=== PATIENT | male | born 2000 | race Caucasian/White ===

== ENCOUNTER 2021-01-25 16:22 | Emergency (ER) | payer OTHER ==
[~2021-01-25] VITALS: Ht 175.3 cm; Wt 96.0 kg
[2021-01-25 19:57] LABS: BASO # 0.1 10^3/uL (0.0-0.2); BASO % 0.8 % (0.0-1.0); EOS # 0.1 10^3/uL (0.0-0.5); EOS % 1.8 % (0.0-3.0); HEMATOCRIT 44.5 % (42.0-52.0); HEMOGLOBIN 15.4 g/dl (13.5-17.5); LYMPH % 39.7 % (24.0-44.0); MEAN CORPUSCULAR HEMOGLOBIN 31.6 pg (27.0-33.0); MEAN CORPUSCULAR HGB CONC 34.6 g/dl (32.0-36.5); MEAN CORPUSCULAR VOLUME 91.2 fl (80.0-96.0); MONO # 0.8 10^3/uL (0.0-0.8); MONO % 10.9 % (2.0-8.0); NEUTROPHILS # 3.5 10^3/uL (1.5-8.5); NEUTROPHILS % 46.7 % (36.0-66.0); PLATELET COUNT, AUTOMATED 176 10^3/uL (150-450); RED BLOOD COUNT 4.88 10^6/uL (4.30-6.10); WHITE BLOOD COUNT 7.6 10^3/uL (4.0-10.0)
[2021-01-25] MEDS ORDERED: PROHANCE 279.3MG/ML 15ML VIAL As Ordered ONE (20:17)
[2021-01-25] MEDS ORDERED: PROHANCE 279.3MG/ML 5ML VIAL As Ordered ONE (20:17)
--- NOTE | 2021-01-25 21:10 | REPVR ---
PROCEDURE INFORMATION: Exam: MR Lumbar Spine Without and With Contrast Exam date and time: 01/25/2021 8:39 PM Age: 20 years old Clinical indication: Lumbago and numbness; Low back pain; Patient HX: Recent spontaneous loss of bowel, back pain/ previous fall 06/2020, numbness in medial groin region; Additional info: Spontaneous loss of bowel and back pain/ previous injury TECHNIQUE: Imaging protocol: Multiplanar magnetic resonance images of the lumbar spine without and with intravenous contrast. Contrast material: PROHANCE; Contrast volume: 16 ml; Contrast route: INTRAVENOUS (IV); COMPARISON: No relevant prior studies available. FINDINGS: Vertebrae and Spinal cord: The lower thoracic cord has a normal appearance and the conus terminates at the level of the midbody of L1. Vertebral body morphology and signal is normal. No fracture or subluxation. Degenerative disc disease and facet arthrosis at L4-L5 and L5-S1. No abnormal enhancement. L1-L2: No significant disc disease. No significant spinal canal stenosis. No neural foraminal stenosis. L2-L3: No significant disc disease. No significant spinal canal stenosis. No neural foraminal stenosis. L3-L4: No significant disc disease. No significant spinal canal stenosis. No neural foraminal stenosis. L4-L5: Mild disc space height loss and decreased disc signal. Posterior broad-based disc protrusion and posterior central focal disc bulge which abuts the left L5 nerve root (axial image 7, series 601). Mild bilateral facet hypertrophy. Mild spinal stenosis. L5-S1: Decreased disc signal. Posterior broad-based disc protrusion and posterior central focal disc bulge. mild bilateral facet hypertrophy, worse on the left. No nerve root impingement or spinal stenosis. Soft tissues: Unremarkable. IMPRESSION: 1. Degenerative spondylosis of the lower lumbar spine. 2. L4-L5 posterior broad-based disc protrusion and posterior central focal disc bulge which abuts the left L5 nerve root. Correlate with left L5 radiculopathy. 3. L5-S1 posterior broad-based disc protrusion and posterior central focal disc bulge without nerve root impingement. Electronically signed by: Rolando Plummer On 01/25/2021 21:10:05 PM
[2021-01-25] MEDS ORDERED: KETO10TAB PO (21:40)
[2021-01-25] MEDS ORDERED: METH-1165 PO (21:41)
[2021-01-25] MEDS ORDERED: KETOROLAC TROMETHAMINE 10 MG TAB PO ONE (21:45)
[2021-01-25 21:51] VITALS: BP 137/91
== END 2021-01-25 22:12 | disposition home or self-care (01) ==
LOC: M ED 16:22
DX: M51.26 Other intervertebral disc displacement, lumbar region (principal); M47.26 Other spondylosis with radiculopathy, lumbar region; M43.16 Spondylolisthesis, lumbar region; R15.9 Full incontinence of feces
CPT/HCPCS: 36415; 72158; 80047; 85025; 99284; A9576

== ENCOUNTER 2021-02-27 10:33 | Emergency (ER) | payer OTHER ==
[~2021-02-27] VITALS: Ht 175.3 cm; Wt 88.6 kg
[~2021-02-27 10:33] MED LIST: KETO10TAB PO; METH-1165 PO
[2021-02-27 13:00] LABS: APPEARANCE, URINE CLEAR (CLEAR); BACTERIA, URINE AUTO NEGATIVE (NEGATIVE); BILIRUBIN, URINE AUTO NEGATIVE (NEGATIVE); BLOOD, URINE BLOOD NEGATIVE (NEGATIVE); COLOR, URINE STRAW (YELLOW); GLUCOSE, URINE (UA) AUTO NEGATIVE (NEGATIVE); KETONE, URINE AUTO NEGATIVE (NEGATIVE); LEUKOCYTE ESTERASE, URINE AUTO NEGATIVE (NEGATIVE); NITRITE, URINE AUTO NEGATIVE (NEGATIVE); PROTEIN, URINE AUTO NEGATIVE (NEGATIVE); RBC, URINE AUTO 0 /HPF (0-3); SQUAMOUS EPITHELIAL CELL UR AU 0 /HPF (0-6); UROBILINOGEN, URINE AUTO 0.2 mg/dL (0.0-2.0); WBC, URINE AUTO 0 /HPF (0-3)
[2021-02-27 13:02] LABS: BASO # 0.1 10^3/uL (0.0-0.2); BASO % 0.5 % (0.0-1.0); EOS # 0.1 10^3/uL (0.0-0.5); EOS % 0.5 % (0.0-3.0); HEMATOCRIT 45.2 % (42.0-52.0); HEMOGLOBIN 16.2 g/dl (13.5-17.5); LYMPH # 2.5 10^3/uL (1.5-5.0); LYMPH % 27.1 % (24.0-44.0); MEAN CORPUSCULAR HEMOGLOBIN 32.5 pg (27.0-33.0); MEAN CORPUSCULAR HGB CONC 35.8 g/dl (32.0-36.5); MEAN CORPUSCULAR VOLUME 90.6 fl (80.0-96.0); MONO # 0.6 10^3/uL (0.0-0.8); MONO % 6.8 % (2.0-8.0); NEUTROPHILS % 64.7 % (36.0-66.0); PLATELET COUNT, AUTOMATED 179 10^3/uL (150-450); RED BLOOD COUNT 4.99 10^6/uL (4.30-6.10); WHITE BLOOD COUNT 9.4 10^3/uL (4.0-10.0)
[2021-02-27 13:29] LABS: BLOOD UREA NITROGEN 15 MG/DL (7-18); CALCIUM LEVEL 9.9 MG/DL (8.5-10.1); CARBON DIOXIDE LEVEL 29 MEQ/L (21-32); CHLORIDE LEVEL 103 MEQ/L (98-107); CREATININE FOR GFR 0.97 MG/DL (0.70-1.30); GLOMERULAR FILTRATION RATE > 60.0 (>60); GLUCOSE, FASTING 92 MG/DL (70-100); POTASSIUM SERUM 4.2 MEQ/L (3.5-5.1); SODIUM LEVEL 138 MEQ/L (136-145)
[2021-02-27] MEDS ORDERED: KETOROLAC 30 MG/ML 1ML VIAL IV ONE (13:30)
[2021-02-27 13:40] LABS: ERYTHROCYTE SEDIMENTATION RATE 9 mm/hr (0-15); VITAMIN B12 LEVEL 371 PG/ML (247-911)
[2021-02-27] MEDS ORDERED: NORCO, ANEXSIA 5/325MG TABLET (HYDROcodone/ACETAMINOPHEN) PO ONE (17:05)
[2021-02-27] MEDS ORDERED: PROHANCE 279.3MG/ML 15ML VIAL As Ordered ONE (20:30)
[2021-02-27] MEDS ORDERED: PROHANCE 279.3MG/ML 5ML VIAL As Ordered ONE (20:30)
[2021-02-27] MEDS ORDERED: diazePAM 10 MG TAB PO ONE (21:35)
[2021-02-27] MEDS ORDERED: LIDOCAINE 5% (LIDODERM) PATCH TD ONE (21:35)
--- NOTE | 2021-02-27 21:46 | REPVR ---
PROCEDURE INFORMATION: Exam: MR Cervical Spine Without and With Contrast Exam date and time: 02/27/2021 8:22 PM Age: 20 years old Clinical indication: Disturbance of skin sensation; Paresthesia of skin; Additional info: Without followed by with contrast: Parasthesias R/O ms TECHNIQUE: Imaging protocol: Multiplanar magnetic resonance images of the cervical spine without and with contrast. Contrast material: PROHANCE; Contrast volume: 19 ml; Contrast route: INTRAVENOUS (IV); COMPARISON: No relevant prior studies available. FINDINGS: Vertebrae: There is no fracture. Vertebral alignment is normal. Stir images demonstrate no evidence of bone marrow edema or marrow infiltrating lesion. There is no marrow enhancement. Spinal cord: The cervical spinal cord and cervicomedullary junction are normal. No abnormal signal or enhancement of the cord. No cord compression. C2-C3: No significant disc disease. No significant spinal stenosis. C3-C4: No significant disc disease. No significant spinal stenosis. C4-C5: No significant disc disease. No significant spinal stenosis. C5-C6: Mild disc bulge. No central or foraminal stenosis. C6-C7: 2 mm right paracentral disc protrusion minimally indenting the thecal sac. No central or foraminal stenosis. C7-T1: No significant disc disease. No significant spinal stenosis. Soft tissues: No paraspinous or intraspinal mass, hemorrhage or fluid collection. Vertebral arteries: Expected flow voids in the vertebral arteries. IMPRESSION: 1. No evidence of demyelinating disease in the cervical spinal cord. 2. Mild disc disease at C5-C6 and C6-C7 Electronically signed by: Deandre Camargo On 02/27/2021 21:45:34 PM
--- NOTE | 2021-02-27 22:06 | REPVR ---
PROCEDURE INFORMATION: Exam: MR Head Without and With Contrast Exam date and time: 02/27/2021 8:22 PM Age: 20 years old Clinical indication: Numbness / parasthesia; Bilateral; Additional info: Parasthesias R/O ms TECHNIQUE: Imaging protocol: MR of the head without and with intravenous contrast. Contrast material: PROHANCE; Contrast volume: 19 ml; Contrast route: INTRAVENOUS (IV); COMPARISON: No relevant prior studies available. FINDINGS: Brain: There is an irregular focus of hyperintense signal in the left middle cerebellar peduncle as seen on series 501 image 8. Maximal dimension is approximately 10 mm . No additional abnormal signal foci are identified. There is no restricted diffusion. there is no hemorrhage or extra-axial collection. There is no abnormal enhancement. There are no abnormal flow voids. Cerebral ventricles: There is no hydrocephalus. Bones/joints: Unremarkable. Paranasal sinuses: Normal as visualized. No acute sinusitis. Mastoid air cells: Normal as visualized. No mastoid effusion. Orbital cavity: Unremarkable. Soft tissues: Unremarkable. IMPRESSION: There is a hyperintense signal focus in the left middle cerebellar peduncle without evidence of restricted diffusion or enhancement. This could represent a demyelinating plaque of multiple sclerosis. Other demyelinating processes are also possible. Electronically signed by: Deandre Camargo On 02/27/2021 22:05:50 PM
[2021-02-27 22:53] VITALS: BP 131/88
--- NOTE | 2021-02-28 15:00 | ED PDOC ---
Post-Departure Follow-Up ft terry and dr espinoza faxed formal report of mri brain and c spine for fu Colt Ley MD Feb 28, 2021 15:00
[2021-02-28] MEDS ORDERED: **NOTE PATIENT COMMENT** MISC XX SCH (21:00)
== END 2021-02-27 23:02 | disposition home or self-care (01) ==
LOC: M ED 10:33
DX: R93.0 Abnormal findings on diagnostic imaging of skull and head, not elsewhere classified (principal); M54.5 Low back pain; M54.6 Pain in thoracic spine; R32 Unspecified urinary incontinence; Z79.899 Other long term (current) drug therapy
CPT/HCPCS: 70553; 72156; 80048; 81001; 82607; 85025; 85652; 99284; A9576; J1885

== ENCOUNTER 2021-03-14 11:43 | Observation (INO) | payer OTHER ==
[~2021-03-14] VITALS: Ht 175.3 cm; Wt 94.4 kg
[2021-03-14] MEDS ORDERED: METH-1164 PO (11:52)
--- NOTE | 2021-03-14 12:37 | REPVR ---
PROCEDURE INFORMATION: Exam: CT Head Without Contrast Exam date and time: 03/14/2021 12:23 PM Age: 20 years old Clinical indication: Other: Intermittent black vision, L arm tingling, possible ms mri TECHNIQUE: Imaging protocol: Computed tomography of the head without contrast. Radiation optimization: All CT scans at this facility use at least one of these dose optimization techniques: automated exposure control; mA and/or kV adjustment per patient size (includes targeted exams where dose is matched to clinical indication); or iterative reconstruction. COMPARISON: MRI-Brain W/O FOLL BY WITH 02/27/2021 7:42 PM FINDINGS: Brain: There is no acute intracranial hemorrhage. No extra-axial fluid collection. The T2 hyperintense lesion in left middle cerebral peduncle seen on MRI is not able to be appreciated on CT. No evidence of acute infarct. Brown white differentiation is intact. There is no evidence of mass. There is no mass effect or midline shift. Cerebral ventricles: No ventriculomegaly. Paranasal sinuses: Visualized sinuses are unremarkable. No fluid levels. Mastoid air cells: No significant mastoid effusion. Bones/joints: No acute fracture. Soft tissues: Unremarkable as visualized. IMPRESSION: No evidence of acute intracranial abnormality. No acute hemorrhage. No evidence of acute infarct or mass. Left middle cerebral peduncle lesion seen on MRI suspicious for demyelination is not well appreciated on CT. Evaluation for white matter disease could be evaluated with repeat MRI. Electronically signed by: Monika Lerner On 03/14/2021 12:37:01 PM
[2021-03-14 13:49] LABS: BASO # 0.1 10^3/uL (0.0-0.2); BASO % 0.6 % (0.0-1.0); EOS # 0.1 10^3/uL (0.0-0.5); EOS % 1.1 % (0.0-3.0); HEMATOCRIT 43.7 % (42.0-52.0); HEMOGLOBIN 15.3 g/dl (13.5-17.5); LYMPH # 2.5 10^3/uL (1.5-5.0); MEAN CORPUSCULAR HEMOGLOBIN 31.5 pg (27.0-33.0); MEAN CORPUSCULAR VOLUME 90.1 fl (80.0-96.0); MONO # 0.7 10^3/uL (0.0-0.8); MONO % 8.5 % (2.0-8.0); NEUTROPHILS # 4.7 10^3/uL (1.5-8.5); NEUTROPHILS % 58.4 % (36.0-66.0); PLATELET COUNT, AUTOMATED 168 10^3/uL (150-450); RED BLOOD COUNT 4.85 10^6/uL (4.30-6.10)
[2021-03-14 14:08] LABS: ALBUMIN 4.5 GM/DL (3.2-5.2); ALT/SGPT 63 U/L (12-78); BILIRUBIN,TOTAL 0.5 MG/DL (0.2-1.0); BLOOD UREA NITROGEN 13 MG/DL (7-18); CALCIUM LEVEL 9.8 MG/DL (8.5-10.1); CARBON DIOXIDE LEVEL 30 MEQ/L (21-32); CHLORIDE LEVEL 106 MEQ/L (98-107); CREATININE FOR GFR 1.03 MG/DL (0.70-1.30); GLOMERULAR FILTRATION RATE > 60.0 (>60); GLUCOSE, FASTING 88 MG/DL (70-100); POTASSIUM SERUM 3.9 MEQ/L (3.5-5.1); RHEUMATOID FACTOR QUANT < 10.0 IU/ML (<15.0); SODIUM LEVEL 139 MEQ/L (136-145); TOTAL PROTEIN 7.5 GM/DL (6.4-8.2)
[2021-03-14 14:15] LABS: MONO REFLEX EBV COMP NEGATIVE (NEGATIVE)
[2021-03-14 14:22] LABS: ERYTHROCYTE SEDIMENTATION RATE 5 mm/hr (0-15)
[2021-03-14] MEDS ORDERED: NS 1,000 ML IV ONE (14:30)
[2021-03-14 14:36] LABS: RSV AMPLIFICATION NEGATIVE (NEGATIVE)
[2021-03-14 15:33] LABS: INR 0.96; PARTIAL THROMBOPLASTIN TIME 25.2 SECONDS (24.2-38.5)
--- NOTE | 2021-03-14 15:45 | HPEPDOC ---
General Date of Admission Mar 14, 2021 at 11:44 Date of Service: Mar 14, 2021 Chief Complaint The patient is a 20-year-old male admitted with a reason for visit of Paresthesia Of R Arm,Vision Changes. 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 He was here on February for various neurological symptoms including back pain bilateral tingling and numbness and had MRIs with and without contrast done for his head , cervical spine and lumber spine and was referred to Neurology. He had a neurology appointment coming up in 3 weeks however with this new episode of transient vision loss for 2 seconds yesterday had a sick call and went to see his provider at [facility] and MD from there called Dr Bobo this am for an urgent appointment and it was decided to bring him in to the ED for further work up. Patient had a back injury in june 2020 when he fell vertically down on his feet from a height of 15ft with full gear on. Since then he has chronic low back pain and neck pain. He had an episode of urinary incontinence in September. he has intermittent pain, numbness and weakness in the left leg which has been most prominent since December 2020. In December he had another episode of urinary incontinence and also stool incontinence. in december he was using a back massager and he was told that his episode of leg pain and weakness was brought on by the massager likely pressing on the nerve . Since January he has not been doing PT since then no further incontinence but sometimes has urinary urgency and sensation incomplete evacuation. he also reports numbness of the left side of the face and intermittent drooling of saliva from rissa left angle of mouth and feels he has been stuttering. He has recently seen an orthopedic surgeon and has been told that he would qualify for medical discharge from the [employer] based on his back injury but first his brain issues need to be clarified before the medical separation process can be started. He reports that he has been having episodes of blackness in front of his eyes likely form December but did not pay any attent ion to it. He reports that first his eyes start orving very first from side to side then a black screen drops in front of his eyes for a few seconds he cant see then his vision is back. All these varied neurological complaints were discussed with neurologist and Dr Bobo advised admission and an Lumber puncture to be preformed. Dr Connelly from anaesthesia was contacted byt ED provider and his procedure will be done later today. Home Medications Scheduled PRN Methocarbamol (Methocarbamol) 500 Mg Tablet, 1,000 MG PO TID PRN for MUSCLE SPASMS, (Reported) Allergies Coded Allergies: No Known Allergies (Unverified , 01/25/21) Past Medical History Medical History Back injury in june 2020 with chronic back pain, neck pain L5 radiculopathy. Migraine Family History Significant Family History: Other (mother migraine) Social History * Smoker: Denies Alcohol: rarely Drugs: denies A-FIB/CHADSVASC A-FIB History Current/History of A-Fib/PAF?: No Review of Systems Constitutional: Denies: Chills, Fever, Night Sweats Eyes: Reports: Vision change ENT: Denies: Head Aches, Ear Pain, Dysphagia Skin: Denies: Rash, Lesions, Breakdown Pulmonary: Denies: Dyspnea, Cough Cardiovascular: Denies: Chest Pain, Palpitations, Orthopnea, Paroxysmal Noc. Dyspnea, Lt Headedness Gastrointestinal: Denies: Nausea, Vomiting, Abdominal Pain, Diarrhea Genitourinary: Reports: Other Symptoms (urgency) Hematologic: Denies: Bruising, Bleeding Excessively Physical Examination General Exam: Positive: Alert, Cooperative, No Acute Distress Eye Exam: Positive: PERRLA, Conjunctiva & lids normal, EOMI; Negative: Sclera icteric ENT Exam: Positive: Atraumatic, Mucous membr. moist/pink, Pharynx Normal Neck Exam: Positive: Supple; Negative: JVD, thyromegaly Chest Exam: Positive: Clear to auscultation, Normal air movement Heart Exam: Positive: Rate Normal, Regular Rhythm, Normal S1, Normal S2; Negative: Murmurs, Rubs Abdomen Exam: Positive: Normal bowel sounds, Soft; Negative: Tenderness, Hepatospenomegaly Extremity Exam: Positive: Normal pulses; Negative: Clubbing, Cyanosis, Edema Neuro Exam: Positive: Normal Speech, Strength at 5/5 X4 ext, Normal Tone, Reflexes 2+ (in both the lower extremities) Vital Signs Vital Signs Date Time Temp Pulse Resp B/P (MAP) Pulse Ox O2 Delivery O2 Flow Rate FiO2 03/14/21 14:06 03/14/21 11:44 98.6 86 18 98 Room Air Laboratory Data Labs 24H Laboratory Tests 2 03/14/21 13:24: Immature Granulocyte % (Auto) 0.4, Neutrophils (%) (Auto) 58.4, Lymphocytes (%) (Auto) 31.0, Monocytes (%) (Auto) 8.5H, Eosinophils (%) (Auto) 1.1, Basophils (%) (Auto) 0.6, Neutrophils # (Auto) 4.7, Lymphocytes # (Auto) 2.5, Monocytes # (Auto) 0.7, Eosinophils # (Auto) 0.1, Basophils # (Auto) 0.1, Nucleated Red Blood Cells % (auto) 0.0, Erythrocyte Sedimentation Rate 5, Anion Gap 3L, Glomerular Filtration Rate > 60.0, Calcium Level 9.8, Total Bilirubin 0.5, Aspartate Amino Transf (AST/SGOT) 26, Alanine Aminotransferase (ALT/SGPT) 63, Alkaline Phosphatase 73, C-Reactive Protein, Quantitative 0.30, Total Protein 7.5, Albumin 4.5, Albumin/Globulin Ratio 1.5, Rheumatoid Factor < 10.0, Monoscreen NEGATIVE 03/14/21 13:27: Coronavirus (COVID-19)(PCR) NEGATIVE, Influenza Type A (RT-PCR) NEGATIVE, Influenza Type B (RT-PCR) NEGATIVE, Respiratory Syncytial Virus (PCR) NEGATIVE 03/14/21 15:03: CBC/BMP Laboratory Tests 03/14/21 13:24 Assessment/Plan 20 year old male admitted for evaluation of transient loss of vision and left upper extremity tingling and numbness. Along with his of intermittent Left lower extremity pain, numbness, weakness, left face numbness, drooling, stuttering 2 episodes of urinary and stool incontinence going on for 6 months. Neurological symptoms rule out MS planned for lumber puncture by anesthesia today. Dr Bobo to evaluate Had recent MRis of brain, cervical spine and lumber spine. 01/25: Lumber spine MRI: 1. Degenerative spondylosis of the lower lumbar spine. 2. L4-L5 posterior broad-based disc protrusion and posterior central focal disc bulge which abuts the left L5 nerve root. Correlate with left L5 radiculopathy. 3. L5-S1 posterior broad-based disc protrusion and posterior central focal disc bulge without nerve root impingement. 02/27 MRI head with and without: There is a hyperintense signal focus in the left middle cerebellar peduncle without evidence of restricted diffusion or enhancement. This could represent a demyelinating plaque of multiple sclerosis. Other demyelinating processes are also possible. 02/27: MRI cervical spine with and without: 1. No evidence of demyelinating disease in the cervical spinal cord. 2. Mild disc disease at C5-C6 and C6-C7 Plan / VTE VTE Prophylaxis Ordered?: Yes JEFFREY YEE MD Mar 14, 2021 15:45
[2021-03-14 16:00] VITALS: BP 122/78
[2021-03-14] MEDS: ACETAMINOPHEN TAB 650MG DOSE (2X325MG) PO PRN (16:16)
[2021-03-14] MEDS ORDERED: KETOROLAC 30 MG/ML 1ML VIAL IV ONE (17:00)
[2021-03-14] MEDS ORDERED: ONDANSETRON 4MG/2ML VIAL As Ordered ONE (20:20)
[2021-03-14 20:23] VITALS: BP 137/87
[2021-03-14] MEDS ORDERED: ONDANSETRON 4MG/2ML VIAL IV ONE (20:30)
[2021-03-14] MEDS ORDERED: FIORICET TAB PO PRN (20:50)
[2021-03-14] MEDS ORDERED: LR 1,000 ML IV ONE (20:50)
[2021-03-14 20:55] VITALS: BP 138/90
[2021-03-14 20:58] VITALS: BP 126/79
[2021-03-14 20:59] LABS: APPEARANCE, CSF CLEAR (CLEAR); COLOR, CSF COLORLESS (COLORLESS); CSF TUBE# CELL CNT TUBE 1; CSF TUBE# CELL CNT TUBE 4
[2021-03-14 21:00] LABS: APPEARANCE, CSF CLEAR (CLEAR); COLOR, CSF COLORLESS (COLORLESS); CSF TUBE# GLU TUBE 2; CSF TUBE# TP TUBE 2; GLUCOSE CSF 51 MG/DL (40-75); TOTAL PROTEIN,CSF 28 MG/DL (15-45)
[2021-03-14] MEDS: methocarbamoL 750 MG TAB PO PRN (21:35)
[2021-03-14 21:44] VITALS: BP 126/80
[2021-03-14] MEDS ORDERED: PROHANCE 279.3MG/ML 5ML VIAL As Ordered ONE (22:51)
[2021-03-14] MEDS ORDERED: PROHANCE 279.3MG/ML 15ML VIAL As Ordered ONE (22:52)
[2021-03-14 23:40] VITALS: BP 125/72
--- NOTE | 2021-03-15 | REPVR ---
PROCEDURE INFORMATION: Exam: MR Thoracic Spine Without and With Contrast Exam date and time: 03/14/2021 10:30 PM Age: 20 years old Clinical indication: Numbness and weakness; Patient HX: Numbness of left arm and leg, urinary issues TECHNIQUE: Imaging protocol: Multiplanar magnetic resonance images of the thoracic spine without and with contrast. Contrast material: PROHANCE; Contrast volume: 18 ml; Contrast route: INTRAVENOUS (IV); COMPARISON: 1. MRI-C SPINE W/O FOLL BY WITH 2021-02-27 19:42 2. MRI-LS SPINE W/O FOLL WITH CON 2021-01-25 19:50 FINDINGS: Vertebrae: Unremarkable. Spinal cord: Normal signal. No cord compression. Discs/Spinal canal/Neural foramina: No significant disc disease. No significant spinal canal stenosis. Soft tissues: Unremarkable. IMPRESSION: Unremarkable spine. Electronically signed by: Pan Boss On 03/15/2021 00:00:50 AM
[2021-03-15 00:47] VITALS: BP 123/62
[2021-03-15 01:35] VITALS: BP 121/70
[2021-03-15 05:56] VITALS: BP 126/77
--- NOTE | 2021-03-15 07:46 | CR ---
CONSULTATION DATE: 03/14/2021 REFERRING PHYSICIAN: Eden Chew M.D. REASON FOR CONSULTATION: Multiple neurological complaints. 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 The patient had a back injury in June 2020 when he fell down on his feet from a 15 feet height when he was climbing a rope. Since then, he has had chronic neck and back pain. In September 2020 he had an episode of urinary incontinence with intermittent pain, numbness and weakness of left leg. His left knee would give out sometimes. He had another episode of urinary incontinence. He also felt urinary hesitancy. He would feel that he did not empty his bladder completely. He would go back to physical training and would feel a few drops of urine had come out. He saw Orthopedic Surgery who recommended medical evaluation for his separation from . Over the last couple of months he has felt new symptoms. He felt numbness and tingling of his left arm going from left elbow to the fingers of his left hand. He felt the sustainability engineer of his left hand was not as strong. He also felt intermittent numbness of the left side of his face and drooling. He feels difficulty with short-term memory. Over the last couple of days he had episodes of losing vision in both eyes, vision becoming black, lasting for a couple of seconds. He felt that his eyes were moving from one side to the other and then he felt a black screen in front of both eyes for a few seconds. He complains of 8/10 neck and back pain. He denies dysphagia, diplopia, seizures or head injuries. DIAGNOSTIC STUDIES: MRI scan of cervical and lumbosacral spine showed disc protrusions at L4-5, L5-S1 level. MRI of cervical spine showed mild spondylosis at C5-6, C6-7 levels. MRI scan of brain with and without contrast on 02/27/21 showed a single punctate white matter lesion in the left middle cerebellar peduncle without contrast enhancement. CT Head today was normal. PAST MEDICAL HISTORY: 1. Back pain. 2. Neck pain. 3. Migraines. ALLERGIES: None. HOME MEDICATIONS: 1. Methocarbamol 500 mg p.o. t.i.d. p.r.n. SOCIAL HISTORY: He denies smoking or illicit drugs. He rarely drinks alcohol. FAMILY HISTORY: Mother with a history of migraines. REVIEW OF SYSTEMS: All systems were reviewed and found to be noncontributory except as mentioned in the history of present illness. PHYSICAL EXAMINATION: Temperature 98.6, pulse 86, respiratory rate 18. Heart: Regular rate and rhythm. Lungs are clear to auscultation. Abdomen is soft, nontender and nondistended. No pedal edema. No musculoskeletal abnormality. No rash. No signs of meningeal irritation. No tremor. Patient is awake, alert and oriented to place, person and time. Normal speech, comprehension and repetition. Extraocular muscles are intact. No facial weakness. Tongue and uvula are midline. There is 5/5 strength in all four extremities. Deep tendon reflexes are 2+ throughout. Patient states he has decreased sensation on dorsum of right hand and had injury to ventral surface of wrist in the past. He has decreased cold and touch sensation in his left leg throughout. His gait is normal. He is able to do tandem walking. He is able to walk on heels and toes. ASSESSMENT: 1. Multiple neurological and somatoform complaints of unclear cause including transient bilateral visual loss which does not qualify for optic neuritis. 2. Urinary bladder hesitancy and mild subjective incontinence with sensory symptoms predominately in left side of body. 3. Chronic neck and back pain due to mild cervical and lumbosacral disc disease. 4. Single punctate white matter focus in left middle cerebellar peduncle is not sufficient to diagnose multiple sclerosis at this time and does not explain his symptoms. Age of this focus is undetermined. PLAN: 1. MRI of thoracic spine with and without contrast. 2. Spine tap with cell count, glucose, protein, oligoclonal bands. 3. Physical Therapy for neck and back pain and Methocarbamol 500 mg p.o. t.i.d. Orthopedics has recommended medical evaluation board for him. 4. Follow in our office in 1-2 after hospital discharge. We will also check vitamin B12, vitamin B1, serum copper, AYANA, Sjgren's, Lyme antibody, NMO, MOG antibodies, etc. MTDD
[2021-03-15 10:00] VITALS: BP 128/72
[2021-03-15] MEDS: methocarbamoL 750 MG TAB PO PRN (10:23)
[2021-03-15] MEDS: ACETAMINOPHEN TAB 650MG DOSE (2X325MG) PO PRN (10:24)
[2021-03-15 14:00] VITALS: BP 133/84
[2021-03-27 11:08] LABS: ANCA-ATYPICAL <1:20 titer (Neg:<1:20); ANTINUCLEAR ANTIBODIES DIRECT Negative (Negative); CYTOPLASMIC NEUTROP AB ANCA-C <1:20 titer (Neg:<1:20); EBV VIRAL CAPSID AG IgG 61.2 U/mL (0.0-17.9); EBV VIRAL CAPSID AG IgM <36.0 U/mL (0.0-35.9); PERINUCLEAR AB ANCA-P <1:20 titer (Neg:<1:20)
[2021-03-29 15:12] LABS: COPPER PLASMA 87 ug/dL (63-121); VITAMIN B1 LEVEL WHOLE BLOOD 131.5 nmol/L (66.5-200.0)
[2021-04-04 18:08] LABS: Lyme Disease IgG/IgM Antibodie <0.91 ISR (0.00-0.90); Lyme Disease IgM Ab Quantitati <0.80 index (0.00-0.79)
== END 2021-03-15 16:20 | disposition home or self-care (01) ==
LOC: M ED 11:43 → M ED INP 11:44 → UNDOADMOB 11:44 → ENRESERV 14:51 → M MS5PR 15:50
PROVIDERS: ADMIT Internal Medicine Nephrology; ATTEND Internal Medicine Nephrology
DX: R20.2 Paresthesia of skin (principal); H53.9 Unspecified visual disturbance; R29.818 Other symptoms and signs involving the nervous system; G43.909 Migraine, unspecified, not intractable, without status migrainosus; M54.5 Low back pain; M54.2 Cervicalgia
CPT/HCPCS: 36415; 62270; 70450; 72157; 80053; 82525; 82607; 82945; 83520; 83916; 84157; 84425; 85025; 85610; 85652; 85730; 86038; 86140; 86255; 86256; 86308; 86431; 86617; 86664; 86665; 87070; 87205; 87483; 87631; 88313; 89050; 99284; A9576; J1885; J2405

== ENCOUNTER 2021-04-18 16:16 | Emergency (ER) | payer OTHER ==
[~2021-04-18] VITALS: Ht 175.3 cm; Wt 91.9 kg
[~2021-04-18 16:16] MED LIST changes: +METH-1164 PO
--- NOTE | 2021-04-18 17:51 | ECGEPIP ---
[facility] - ED Test Date: 2021-04-18 Pat Name: DANISHA PHILLIPS Department: Room: - Gender: Male Overweaver: LORRAINE : 2000 Requested By: CHRISTIANO ESCOBAR PA-C. Order Number: [id number] Reading MD: Pan So Measurements Intervals [place] Rate: 68 P: 52 IA: 138 QRS: 10 QRSD: 100 T: 30 QT: 380 QTc: 404 Interpretive Statements Normal sinus rhythm Incomplete right bundle branch block Comparison tracing not on file Electronically Signed on 04-18-2021 17:51:10 EDT by Pan So
--- NOTE | 2021-04-18 19:05 | REP ---
INDICATION: chest pain. COMPARISON: None. TECHNIQUE: PA lateral FINDINGS: The lung chowdhury are well inflated. CP angles are sharply defined without effusion or lateral pleural thickening. There is no pneumothorax or pneumomediastinum. No infiltrate, atelectasis or mass. The heart, mediastinal and hilar contours are normal. The aorta and airway were intact. Bony thorax unremarkable. IMPRESSION: No acute cardiopulmonary change. <Electronically signed by Graeme Mcelroy > 04/18/21 [id number]
[2021-04-18 19:19] LABS: BASO # 0.1 10^3/uL (0.0-0.2); BASO % 0.6 % (0.0-1.0); EOS # 0.1 10^3/uL (0.0-0.5); EOS % 1.2 % (0.0-3.0); HEMATOCRIT 45.7 % (42.0-52.0); HEMOGLOBIN 16.3 g/dl (13.5-17.5); LYMPH # 3.6 10^3/uL (1.5-5.0); LYMPH % 39.8 % (24.0-44.0); MEAN CORPUSCULAR HEMOGLOBIN 31.8 pg (27.0-33.0); MEAN CORPUSCULAR HGB CONC 35.7 g/dl (32.0-36.5); MEAN CORPUSCULAR VOLUME 89.3 fl (80.0-96.0); MONO # 0.7 10^3/uL (0.0-0.8); MONO % 7.7 % (2.0-8.0); NEUTROPHILS # 4.6 10^3/uL (1.5-8.5); NEUTROPHILS % 50.6 % (36.0-66.0); PLATELET COUNT, AUTOMATED 189 10^3/uL (150-450); RED BLOOD COUNT 5.12 10^6/uL (4.30-6.10)
[2021-04-18 19:39] LABS: CK-MB VALUE MASS < 1.0 NG/ML (<3.6); CPK CREATINE PHOSPHOKINASE 180 U/L (39-308); MB/CK RELATIVE INDEX 0.56 (< OR =4); TROPONIN I < 0.02 NG/ML (< 0.10)
[2021-04-18] MEDS ORDERED: NAPR-837 PO (19:53)
[2021-04-18] MEDS ORDERED: NAPROXEN 250 MG TAB PO ONE (19:55)
[2021-04-18 20:01] VITALS: BP 134/80
== END 2021-04-18 20:05 | disposition home or self-care (01) ==
LOC: M ED 16:16
DX: I45.19 Other right bundle-branch block (principal); R07.89 Other chest pain; M54.9 Dorsalgia, unspecified; F17.200 Nicotine dependence, unspecified, uncomplicated

== ENCOUNTER → 2021-05-09 | Outpatient (CLI) | payer OTHER ==
[~2021-05-09] MED LIST changes: +E-Z-GAS II EFFERVESCENT PACKET (SODIUM BICARB./CITRIC ACID/SIMETHICONE) As Ordered ONE; +E-Z-HD 98% w/w 340GM SUSP BTL As Ordered ONE; +E-Z-PAQUE 96% w/w SUSP 176GM BTL As Ordered ONE; +NAPR-837 PO
--- NOTE | 2021-05-09 21:57 | REP ---
INDICATION: DYSPHAGIA. COMPARISON: None. TECHNIQUE: This procedure was performed under the direct supervision of Dr. Meléndez. Images were reviewed with Dr. Meléndez. Liquid barium and gas producing granules were given in the erect position as well as liquid barium in the prone oblique positions in order to perform a double contrast esophagram examination. A combination of fluoroscopy, spot films and last image hold technology was utilized. 0.6 minutes of fluoro time was utilized for this procedure. FINDINGS: A single view PA chest x-ray is submitted as a mental health counselor film. The superior mediastinal structures are midline. The heart size is within normal limits. The lungs are clear. The oral and pharyngeal stages of deglutition are unremarkable. Esophageal transport is prompt and efficient and there is no esophagitis, stricture, mucosal ring, or hiatal hernia.Gastroesophageal reflux is not demonstrated on this examination. IMPRESSION: Essentially unremarkable double-contrast esophagram examination. <Electronically signed by Terry العراقي > 05/09/21 [id number] <Electronically signed by Hamilton Meléndez > 05/09/21 [id number]
== END ==
LOC: M RAD 10:00
PROVIDERS: ATTEND General Practice
DX: R13.10 Dysphagia, unspecified (principal)

== ENCOUNTER → 2021-09-16 | Outpatient (REF) ==
[~2021-09-16] MED LIST changes: -E-Z-GAS II EFFERVESCENT PACKET (SODIUM BICARB./CITRIC ACID/SIMETHICONE) As Ordered ONE; -E-Z-HD 98% w/w 340GM SUSP BTL As Ordered ONE; -E-Z-PAQUE 96% w/w SUSP 176GM BTL As Ordered ONE
== END ==
LOC: M PLAIMG 10:32
PROVIDERS: ATTEND Internal Medicine
DX: Z00.00 Encounter for general adult medical examination without abnormal findings (principal)

== ENCOUNTER 2021-12-23 13:27 | Outpatient (CLI) | payer OTHER ==
[~2021-12-23] VITALS: Ht 175.3 cm; Wt 92.0 kg
[2021-12-23 13:50] VITALS: BP 145/86
[2021-12-23] MEDS ORDERED: methylPREDNISolone 1,000 MG, VIAL MATE ADAPTER 1 EACH in NS 250 ML IV ONE (14:00)
[2021-12-23 15:02] VITALS: BP 141/86
== END 2021-12-23 15:00 | disposition home or self-care (01) ==
LOC: M INFU 13:27
PROVIDERS: ATTEND Psychiatry & Neurology Neurology
DX: G35 Multiple sclerosis (principal)
CPT/HCPCS: 96365; J2930

== ENCOUNTER 2021-12-24 13:42 | Outpatient (CLI) | payer OTHER ==
[~2021-12-24] VITALS: Ht 175.3 cm; Wt 92.0 kg
[2021-12-24] MEDS ORDERED: methylPREDNISolone 1,000 MG, VIAL MATE ADAPTER 1 EACH in NS 250 ML IV ONE (14:00)
[2021-12-24 14:03] VITALS: BP 137/77
[2021-12-24 15:08] VITALS: BP 133/76
== END 2021-12-24 15:05 | disposition home or self-care (01) ==
LOC: M INFU 13:42
PROVIDERS: ATTEND Psychiatry & Neurology Neurology
DX: G35 Multiple sclerosis (principal)
CPT/HCPCS: 96365; J2930

== ENCOUNTER 2021-12-25 13:35 | Outpatient (CLI) | payer OTHER ==
[~2021-12-25] VITALS: Ht 175.3 cm; Wt 92.0 kg
[2021-12-25 13:35] VITALS: BP 145/75
[2021-12-25] MEDS ORDERED: methylPREDNISolone 1,000 MG, VIAL MATE ADAPTER 1 EACH in NS 250 ML IV ONE (14:00)
[2021-12-25 14:50] VITALS: BP 141/79
== END 2021-12-25 14:50 | disposition home or self-care (01) ==
LOC: M INFU 13:35
PROVIDERS: ATTEND Psychiatry & Neurology Neurology
DX: G35 Multiple sclerosis (principal)
CPT/HCPCS: 96365; J2930

== ENCOUNTER 2021-12-26 13:36 | Outpatient (CLI) | payer OTHER ==
[2021-12-26] MEDS ORDERED: methylPREDNISolone 1,000 MG, VIAL MATE ADAPTER 1 EACH in NS 250 ML IV ONE (14:00)
[2021-12-26 14:01] VITALS: BP 142/73
[2021-12-26 14:52] VITALS: BP 138/75
== END 2021-12-26 15:00 | disposition home or self-care (01) ==
LOC: M INFU 13:36
PROVIDERS: ATTEND Psychiatry & Neurology Neurology
DX: G35 Multiple sclerosis (principal)
CPT/HCPCS: 96365; J2930

== ENCOUNTER 2021-12-27 15:17 | Outpatient (CLI) | payer OTHER ==
[~2021-12-27] VITALS: Ht 175.3 cm; Wt 92.0 kg
[2021-12-27 15:20] VITALS: BP 140/84
[2021-12-27] MEDS ORDERED: methylPREDNISolone 1,000 MG, VIAL MATE ADAPTER 1 EACH in NS 250 ML IV ONE (15:30)
[2021-12-27 16:29] VITALS: BP 145/81
== END 2021-12-27 16:30 | disposition home or self-care (01) ==
LOC: M INFU 15:17
PROVIDERS: ATTEND Psychiatry & Neurology Neurology
DX: G35 Multiple sclerosis (principal)
CPT/HCPCS: 96365; J2930